=== PATIENT | male | born 1960 | race Caucasian/White ===

== ENCOUNTER 2018-02-01 07:23 | Emergency (ER) | payer OTHER ==
--- NOTE | 2018-02-01 07:42 | ER Report ---
History and Physical Time Seen By MD: 07:15 Hx. of Stated Complaint: PATIENT WAS CLIMBING DOWN LADDER THAT SLIPPED OUT FROM THE BOTTOM. HE REPORTS FALLING ABOUT 9 FEET HPI/ROS Otherwise healthy 57-year-old male was working on a roof this morning. He stepped on a ladder to come down from the wound at which point the ladder slipped on the wet surface below. The patient in the ladder both fell approximately 9 feet. There was no loss of consciousness. No head trauma. Patient's only complaint is some fluid out of 10 low back pain. He has no focal neurologic deficits or complaints. Denies any use of anticoagulants. There is no pain in his neck/C-spine. Allergies: Coded Allergies: No Known Drug Allergies (Verified , 02/07/17) Home Meds No Active Prescriptions or Reported Meds Reviewed Nurses Notes: Yes Hx Smoking: Yes Hx Substance Use Disorder: No (REFUSED TO ANSWER) Hx Alcohol Use: Yes (REFUSES TO ANSWER) Constitutional Vital Sign - Last 24 Hours 02/01/18 02/01/18 02/01/18 02/01/18 07:23 07:24 07:30 07:53 Pulse 77 73 67 Resp 20 18 B/P (MAP) 185/125 170/139 (149) Pulse Ox 96 96 O2 Delivery Room Air 02/01/18 08:23 Pulse 82 Resp 11 Pulse Ox 93 Physical Exam General Appearance: The patient is alert, has no immediate need for airway protection and no signs of toxicity. Eyes: Pupils equal and round no pallor or injection. ENT, Mouth: Mucous membranes are moist. Respiratory: There are no retractions, lungs are clear to auscultation. Cardiovascular: Regular rate and rhythm. Symmetric pulses. Equal rise and fall of chest Gastrointestinal: Abdomen is soft and non tender, no masses, bowel sounds normal. Neurological: strength/sensation in tact. Skin: Warm and dry, no abrasions/lacerations/ecchymoses Musculoskeletal: Neck is supple non tender. TTP of T11-L3. No stepoffs Extremities are nontender, nonswollen and have full range of motion. DIFFERENTIAL DIAGNOSIS: After history and physical exam differential diagnosis was considered for fractures, organ damage, neurologic injury, [facility] Medical Decision Making Data Points Result Diagram: 02/01/18 0740 02/01/18 0740 Laboratory Hematology Test 02/01/18 07:40 Red Blood Count 5.12 M/uL (4.00-5.60) Mean Corpuscular Volume 91.0 fL (80.0-96.0) Mean Corpuscular Hemoglobin 32.7 pg (26.0-33.0) Mean Corpuscular Hemoglobin Concent 35.9 g/dL (32.0-36.0) Red Cell Distribution Width 12.9 % (11.5-14.5) Mean Platelet Volume 8.1 fL (7.2-11.1) Neutrophils (%) (Auto) 75.4 % (39.4-72.5) Lymphocytes (%) (Auto) 16.6 % (17.6-49.6) Monocytes (%) (Auto) 6.3 % (4.1-12.4) Eosinophils (%) (Auto) 1.3 % (0.4-6.7) Basophils (%) (Auto) 0.4 % (0.3-1.4) Nucleated RBC Relative Count (auto) 0.5 /100WBC Neutrophils # (Auto) 5.6 K/uL (2.0-7.4) Lymphocytes # (Auto) 1.2 K/uL (1.3-3.6) Monocytes # (Auto) 0.5 K/uL (0.3-1.0) Eosinophils # (Auto) 0.1 K/uL (0.0-0.5) Basophils # (Auto) 0.0 K/uL (0.0-0.1) Nucleated RBC Absolute Count (auto) 0.03 K/uL Sodium Level 141 mmol/L (137-145) Potassium Level 4.0 mmol/L (3.5-5.0) Chloride Level 104 mmol/L (98-107) Carbon Dioxide Level 24 mmol/L (22-30) Blood Urea Nitrogen 13 mg/dl (9-21) Creatinine 0.90 mg/dl (0.66-1.25) Glomerular Filtration Rate Calc > 60.0 Random Glucose 106 mg/dl (75-110) Calcium Level 9.4 mg/dl (8.4-10.2) Total Bilirubin 1.5 mg/dl (0.2-1.3) Aspartate Amino Transf (AST/SGOT) 36 U/L (0-35) Alanine Aminotransferase (ALT/SGPT) 43 U/L (0-56) Alkaline Phosphatase 50 U/L (0-126) Total Protein 7.3 gm/dl (6.3-8.2) Albumin 4.4 g/dl (3.5-5.0) Chemistry Test 02/01/18 07:40 White Blood Count 7.4 k/uL (4.5-11.0) Red Blood Count 5.12 M/uL (4.00-5.60) Hemoglobin 16.7 g/dL (14.0-18.0) Hematocrit 46.6 % (42.0-52.0) Mean Corpuscular Volume 91.0 fL (80.0-96.0) Mean Corpuscular Hemoglobin 32.7 pg (26.0-33.0) Mean Corpuscular Hemoglobin Concent 35.9 g/dL (32.0-36.0) Red Cell Distribution Width 12.9 % (11.5-14.5) Platelet Count 156 K/uL (150-450) Mean Platelet Volume 8.1 fL (7.2-11.1) Neutrophils (%) (Auto) 75.4 % (39.4-72.5) Lymphocytes (%) (Auto) 16.6 % (17.6-49.6) Monocytes (%) (Auto) 6.3 % (4.1-12.4) Eosinophils (%) (Auto) 1.3 % (0.4-6.7) Basophils (%) (Auto) 0.4 % (0.3-1.4) Nucleated RBC Relative Count (auto) 0.5 /100WBC Neutrophils # (Auto) 5.6 K/uL (2.0-7.4) Lymphocytes # (Auto) 1.2 K/uL (1.3-3.6) Monocytes # (Auto) 0.5 K/uL (0.3-1.0) Eosinophils # (Auto) 0.1 K/uL (0.0-0.5) Basophils # (Auto) 0.0 K/uL (0.0-0.1) Nucleated RBC Absolute Count (auto) 0.03 K/uL Glomerular Filtration Rate Calc > 60.0 Calcium Level 9.4 mg/dl (8.4-10.2) Total Bilirubin 1.5 mg/dl (0.2-1.3) Aspartate Amino Transf (AST/SGOT) 36 U/L (0-35) Alanine Aminotransferase (ALT/SGPT) 43 U/L (0-56) Alkaline Phosphatase 50 U/L (0-126) Total Protein 7.3 gm/dl (6.3-8.2) Albumin 4.4 g/dl (3.5-5.0) EKG/Imaging Imaging Results: CT scan of the chest/abdomen/pelvi/T and L spine was obtained. The results of the study are no acute findings from injury. There is an incidental finding of a kidney mass that will need a follow up MRI. The study was read by the radiologist. I viewed the images myself on the PACS system. ED Course/Re-evaluation Clinical Indication for ER IV: IV Access ED Course 02/01/2018 9:42:54 am This is a 57-year-old male who does not have any medical problems or take any medications. He fell on 9 feet from the top of the ladder while climbing down from a roof. No loss of consciousness. Normal neurologic exam. His only complaint and physical exam finding was tenderness to palpation of the T and L spines. A CT scan of the chest/abdomen and pelvis with T and L-spines was obtained. There are no fractures or acute bleeding identified. Recent incidental finding of a mass on his kidneys that will need follow-up with an MRI as an outpatient. I did discuss this with the patient. On repeat exam, his pain has improved without any intervention and he is now up and walking around the emergency department with minimal pain. He is refusing all pain medication to include Toradol. He does not have a primary care doctor, and has been given information to file his worksman's comp claim so that he can get further care for this injury. Decision to Disposition Date: February 01, 2018 Decision to Disposition Time: 09:45 Depart Departure Latest Vital Signs Vital Signs Date Time Temp Pulse Resp B/P (MAP) Pulse Ox O2 Delivery O2 Flow Rate FiO2 02/01/18 08:23 82 11 93 02/01/18 07:30 170/139 (149) 02/01/18 07:24 Room Air Impression: Primary Impression: Fall from ladder Condition: Improved Disposition: HOME OR SELF-CARE New Scripts No Active Prescriptions or Reported Meds Patient Instructions: Acute Low Back Pain (ED) Additional Instructions: There was an incidental finding on your CT scan. There is a cyst versus a mass on her kidney. This will need further evaluation with an outpatient MRI. Problem Qualifiers Primary Impression: Fall from ladder Encounter type: initial encounter Qualified Codes: W11.XXXA - Fall on and from ladder, initial encounter ANGELIQUE PERRY MD February 01, 2018 07:42
[2018-02-01 07:59] LABS: PLATELET COUNT, AUTOMATED 156 K/uL (150-450)
[2018-02-01] MEDS ORDERED: IOPAMIDOL 76% 75 ML INFUS BTL 75 ML ONE (08:00)
--- NOTE | 2018-02-01 08:54 | RADIOLOGY IMAGING REPORT ---
FACILITY: [facility] PATIENT NAME: Caleb North : 1960 MR: [id number] V: [id number] EXAM DATE: ORDERING PHYSICIAN: ANGELIQUE PERRY TECHNOLOGIST: Location: [facility] [place] Patient: Caleb North : 1960 Visit/Account:[id number] Date of Sevice: 02/01/2018 CHEST/AB/PELV W/CONTRAST HISTORY: fall 9 feet from roof ADDITIONAL HISTORY: None. TECHNIQUE: Following administration of IV contrast axial images acquired through the chest abdomen a nd pelvis during the portal venous phase. Coronal and sagittal reformatting was also performed. Dose Lowering Technique One of the following dose optimization techniques was utilized in the performance of this exam: Autom ated exposure control; adjustment of the mA and/or kV according to the patient's size; or use of an i terative reconstruction technique. Specific details can be referenced in the facility's radiology C T exam operational policy. CONTRAST: 75 mL [id number]-[id number] COMPARISON: None. FINDINGS: CHEST: Lungs/Pleura: There is no evidence of pulmonary contusion, pneumothorax pneumomediastinum or pleural effusion. Mediastinum/lymph nodes: Negative. Heart/vessels: Mild coronary artery calcifications. No evidence of cardiomegaly or pericardial effu estevan Bones/soft tissues: There are large right anterior osteophytes at T7-8 and smaller osteophytes seen throughout the thoracic spine. There is a cortical irregularity seen along the posterior medial aspe ct of the left 11th rib which could be related to old trauma. There is a small sclerotic density see n along the lateral aspect of the left fifth rib possibly a bone island ABDOMEN AND PELVIS: Hepatobiliary: Small calcification in the left lobe of the liver Spleen: Borderline enlarged at 13.7 cm in length Pancreas: Negative. Adrenals: 8 mm hypoattenuating right adrenal nodule Kidneys ureters and bladder : 1.3 cm cortical cyst lateral aspect upper pole of the right kidney. Th ere is an additional 1.1 cm indeterminate round hypodensity upper pole of the right kidney . There is mild thickening of the anterior bladder wall Genitalia: Negative. GI: The appendix appears mildly thickened at 9 mm in diameter although no definite inflammatory cristin nge seen. There is no evidence of free intraperitoneal air or or free fluid Vessels/spaces/nodes: There are mild vascular calcifications Bones/soft tissues: There is a left inguinal hernia containing fat . Small sclerotic densities are seen in the left iliac bone and several lumbar vertebral bodies which m ay also represent bone islands. Additional findings: None pertinent. IMPRESSION: Degenerative changes of the thoracic spine as described. Borderline splenomegaly 8 mm hypoattenuating right adrenal nodule. 1.3 cm upper pole cyst right kidney. There is an additional 1.1 cm indeterminate round hypodensity u pper pole the right kidney. This could represent an incidental hemorrhagic or proteinaceous cyst alt brittany solid lesion not excluded. Further workup is desired ultrasound or MR is recommended There is mild thickening to the anterior bladder wall. Clinical correlation needed The appendix appears mildly thickened up to 9 mm in diameter although no definite inflammatory change is seen surrounding the appendix. There is no evidence of fringe peritoneal air or free fluid. Left inguinal hernia containing fat Small sclerotic densities seen in the left iliac bone, several lumbar vertebral bodies and the left f ifth rib which could represent bone islands.. Report Dictated By: Heather Maddox MD at 02/01/2018 8:30 AM Report E-Signed By: Heather Maddox MD at 02/01/2018 8:51 AM WSN:[email or web address]
--- NOTE | 2018-02-01 09:05 | RADIOLOGY IMAGING REPORT ---
FACILITY: [facility] - [place] PATIENT NAME: Caleb North : 1960 MR: [id number] V: [id number] EXAM DATE: ORDERING PHYSICIAN: ANGELIQUE PERRY TECHNOLOGIST: Location: Patient: Caleb North : 1960 Visit/Account:[id number] Date of Sevice: 02/01/2018 Exam type: L-SPINE W CONTRAST History: FALL OFF LADDER, 9 feet from roof Comparison: CT chest abdomen pelvis performed today TECHNIQUE: Multiple axial images were obtained through the lumbar spine without contrast. Coronal an d sagittal reformations were performed. Dose Lowering Technique One of the following dose optimization techniques was utilized in the performance of this exam: Autom ated exposure control; adjustment of the mA and/or kV according to the patient's size; or use of an i terative reconstruction technique. Specific details can be referenced in the facility's radiology C T exam operational policy. . Findings: There are five nonrib-bearing lumbar-type vertebral bodies present. There is no evidence of acute fr actures or subluxations. Right lateral osteophytes are identified at L1-2 and L2-3. Small squatted densities are seen scatter ed throughout the lumbar vertebral bodies and right iliac bone which may represent bone islands. The re are well-circumscribed lucent lesions also seen in the iliac bones which appear chronic. There mild broad-based disc bulges at L2-3 L3-4 L4-5 and L5-S1. No evidence of a paraspinal hematoma. IMPRESSION: 1. Mild spondylotic changes of the lumbar spine although no evidence of acute fractures or subluxati ons Report Dictated By: Heather Maddox MD at 02/01/2018 8:51 AM Report E-Signed By: Heather Maddox MD at 02/01/2018 9:00 AM WSN:[email or web address]
--- NOTE | 2018-02-01 09:16 | RADIOLOGY IMAGING REPORT ---
FACILITY: [facility] PATIENT NAME: Caleb North : 1960 MR: [id number] V: [id number] EXAM DATE: ORDERING PHYSICIAN: ANGELIQUE PERRY TECHNOLOGIST: Location: [facility] - [place] Patient: Caleb North : 1960 Visit/Account:[id number] Date of Sevice: 02/01/2018 Exam type: T-SPINE W CONTRAST History: FALL OFF LADDER Comparison: CT of the chest abdomen and pelvis performed today TECHNIQUE: Multiple axial images were obtained through the thoracic spine without contrast. Consider recent admissions were performed. Dose Lowering Technique One of the following dose optimization techniques was utilized in the performance of this exam: Autom ated exposure control; adjustment of the mA and/or kV according to the patient's size; or use of an i terative reconstruction technique. Specific details can be referenced in the facility's radiology C T exam operational policy. . Findings: There is no evidence of acute fractures or subluxations in the thoracic spine. Large anterior right osteophytes are seen at T7-8 and smaller right lateral osteophytes at T8-9 and T4-5. There is mild right paracentral disc bulge/protrusion at T9-10. No evidence of a paraspinal hematoma . IMPRESSION: 1. Spondylotic changes of the thoracic spine as described Mild right paracentral disc bulge/protrusion at T9-10 Report Dictated By: Heather Maddox MD at 02/01/2018 9:00 AM Report E-Signed By: Heather Maddox MD at 02/01/2018 9:11 AM WSN:[email or web address]
[2018-02-01] MEDS ORDERED: KETOROLAC 30 MG/ML VIAL IVP ONE (09:35)
[2018-02-01] MEDS ORDERED: ONDANSETRON 4 MG/2 ML VIAL IVP ONE (09:35)
[2018-02-01 09:54] VITALS: BP 158/98
== END 2018-02-01 09:55 | disposition home or self-care (01) ==
LOC: ER 07:32
DX: M54.5 Low back pain (principal); W11.XXXA Fall on and from ladder, initial encounter; Y99.0 Civilian activity done for income or pay
CPT/HCPCS: 71260; 72129; 72132; 74177; 85025; 99284; Q9967; 82040; 82247; 82310; 82374; 82435; 82565; 82947; 84075; 84132; 84155; 84295; 84450; 84460; 84520

== ENCOUNTER → 2018-02-01 | Outpatient (CLI) | payer OTHER | LOC: AMB 06:46 | PROVIDERS: ATTEND Nurse Practitioner | DX: M54.5 Low back pain (principal); W11.XXXA Fall on and from ladder, initial encounter | CPT/HCPCS: A0425; A0427 ==